=== PATIENT | female | born 1965 | race African-American/Black ===

== ENCOUNTER 2021-12-27 14:13 | Emergency (ER) | payer MEDICARE, SELFPAY ==
[2021-12-27 14:30] VITALS: BP 106/70; PULSE 57; RESP 20; TEMP 36.8; O2SAT 98
[2021-12-27] MEDS: KETOROLAC (*BKC) 60 MG/2 ML VIAL IM (15:03)
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
== END 2021-12-27 15:35 | disposition home or self-care (01) ==
PROVIDERS: Emergency Provider Nurse Practitioner
DX: N39.0 Urinary tract infection, site not specified (principal)
CPT/HCPCS: 81003; 87086; 87088; 96372; 99213; G0463; J1885

== ENCOUNTER 2025-02-14 09:48 | Outpatient (CLI) | payer MEDICARE, SELFPAY ==
--- NOTE | ~2025-02-14 | XR_ITS ---
EXAM/PROCEDURE: XR enema water soluble HISTORY: K59.09 - Other constipation, 2 HERNIA SURGERIES COMPARISON: None available. TECHNIQUE: Water-soluble contrast performed. Fluoroscopy time: 0.9 minutes DAP: 132.519 Mckoy per square centimeter Number of images: 36 Under fluoroscopic guidance, approximately 1.5 L of water-soluble contrast infused retrograde via gravity drainage. FINDINGS: No obvious stricture or stenosis on this single contrast exam. No large masses or extravasation of contrast. No significant diverticular disease appreciated. On postevacuation moderate amount of contrast remains throughout the large intestine. IMPRESSION: Moderate amount of retained water-soluble contrast on post evacuation image. Otherwise negative single contrast water soluble enema. Reviewed, dictated and finalized at location A. [facility] IMPRESSION: Moderate amount of retained water-soluble contrast on post evacuation image. Ot herwise negative single contrast water soluble enema.
== END 2025-02-14 09:49 | disposition home or self-care (01) ==
PROVIDERS: PCP Internal Medicine; Visit Provider Internal Medicine
DX: K59.09 Other constipation (principal); R10.9 Unspecified abdominal pain; K59.2 Neurogenic bowel, not elsewhere classified
CPT/HCPCS: 74270